=== PATIENT | female | born 1990 | race Caucasian/White ===

== ENCOUNTER 2017-05-13 17:06 | Emergency (ER) | payer MEDICAID ==
[~2017-05-13] VITALS: Ht 162.6 cm; Wt 57.0 kg
[2017-05-13 17:14] VITALS: BP 127/80
== END 2017-05-14 01:12 | disposition left against medical advice (07) ==
LOC: ER 23:59
DX: M54.5 Low back pain (principal); Z53.21 Procedure and treatment not carried out due to patient leaving prior to being seen by health care provider

== ENCOUNTER 2020-11-18 22:32 | Observation (INO) | payer MEDICAID ==
[~2020-11-18] VITALS: Ht 157.5 cm; Wt 71.7 kg
[2020-11-18] MEDS ORDERED: LACTATED RINGERS 1,000 ML IV SCH ×2 (23:15→23:45)
[2020-11-18 23:25] LABS: CLARITY URINE CLEAR (CLEAR); COLOR URINE YELLOW (YELLOW); KETONES URINE NEGATIVE (NEGATIVE); LEUKOCYTE ESTERASE URINE 1+ (NEGATIVE); NITRITE URINE NEGATIVE (NEGATIVE); OCCULT BLOOD URINE NEGATIVE (NEGATIVE); PH URINE 5.5 (4.5-8.0); PROTEIN URINE NEGATIVE (NEGATIVE); SPECIFIC GRAVITY URINE 1.014 (1.005-1.030); UROBILINOGEN URINE 0.2 E.U./dL (0.2-1.0)
[2020-11-18] MEDS ORDERED: PREN1TAB78 MT (23:30)
[2020-11-18] MEDS ORDERED: FERR236T3 MT (23:31)
[2020-11-18] MEDS ORDERED: FERR-71 MT (23:31)
[2020-11-19] MEDS ORDERED: TERBUTALINE SULFATE 1MG/ML VIAL SUBCUT NR (00:45)
[2020-11-19] MEDS ORDERED: CEFAZOLIN 2,000 MG in DEXT 5% WATER 100 ML IV SCH (01:30)
== END 2020-11-19 02:00 | disposition home or self-care (01) ==
LOC: 8 EST LDRP 22:32
PROVIDERS: ADMIT Obstetrics & Gynecology; ATTEND Obstetrics & Gynecology
DX: O26.893 Other specified pregnancy related conditions, third trimester (principal); R10.9 Unspecified abdominal pain; Z3A.36 36 weeks gestation of pregnancy
CPT/HCPCS: 59025; 81003; 96361; 96365; 96372; G0378; J3105; J7120; 96360; 99281; J0690; J7060

== ENCOUNTER 2020-12-08 21:59 | Inpatient (IN) | payer MEDICAID ==
[~2020-12-08] VITALS: Ht 157.5 cm; Wt 72.1 kg
[~2020-12-08 21:59] MED LIST: FERR-71 MT; PREN1TAB78 MT
[2020-12-08] MEDS ORDERED: FERR325T6 PO (22:26)
[2020-12-08] MEDS ORDERED: PREN-182 PO (22:26)
[2020-12-08] MEDS ORDERED: LIDOCAINE HCL 1% 20ML VIAL (Pyxis) INJ INFIL SCH (23:15)
[2020-12-08] MEDS ORDERED: MISOPROSTOL 100MCG TABLET VG SCH (23:15)
[2020-12-08] MEDS ORDERED: NALOXONE HCL 0.4 MG/ML 1ML VIAL IM PRN (23:15)
[2020-12-08] MEDS ORDERED: DEXT 5%/LR + PITOCIN 20UNITS/L 1,000 ML IV SCH (23:15)
[2020-12-08] MEDS ORDERED: CARBOPROST TROMETHAMINE 250 MCG/ML AMPUL IM PRN (23:15)
[2020-12-08] MEDS ORDERED: BUTORPHANOL TARTRATE 2 MG/ML VIAL IV PRN (23:15)
[2020-12-08] MEDS ORDERED: METHYLERGONOVINE MALEATE 0.2 MG/ML IM PRN (23:15)
[2020-12-08 23:57] LABS: CLARITY URINE CLEAR (CLEAR); COLOR URINE YELLOW (YELLOW); KETONES URINE NEGATIVE (NEGATIVE); LEUKOCYTE ESTERASE URINE NEGATIVE (NEGATIVE); NITRITE URINE NEGATIVE (NEGATIVE); OCCULT BLOOD URINE NEGATIVE (NEGATIVE); PH URINE 6.5 (4.5-8.0); PROTEIN URINE NEGATIVE (NEGATIVE); SPECIFIC GRAVITY URINE 1.016 (1.005-1.030)
[2020-12-09] LABS: BASOPHILS % 0.5 % (0.0-2.0); EOSINOPHILS % 0.4 % (0.0-5.0); HEMATOCRIT. 30.8 % (36.0-48.0); HEMOGLOBIN. 10.3 g/dL (12.0-16.0); LYMPHOCYTES % 17.9 % (20.0-50.0); MEAN CORPUSCULAR HEMOGLOBIN 25.6 pg (28.0-32.0); MEAN CORPUSCULAR VOLUME 76.6 fL (81.0-99.0); MEAN PLATELET VOLUME 8.5 fl (7.4-10.4); NEUTROPHILS % 76.2 % (40.0-76.0); PLATELET 273 x1000/uL (130-400); RED BLOOD CELL COUNT 4.02 mill/uL (4.2-5.4); RED CELL DISTRIBUTION WIDTH 14.7 % (11.6-14.6)
[2020-12-09] MEDS ORDERED: PENICILLIN G POTASSIUM 5 MMU in DEXT 5% WATER 100 ML IV SCH
[2020-12-09] MEDS: LACTATED RINGERS 1,000 ML IV SCH ×2 (00:02→01:26)
[2020-12-09 00:06] LABS: INR 0.9; PARTIAL THROMBOPLASTIN TIME 25.9 sec (23.4-31.0); PROTHROMBIN TIME 9.8 sec (9.6-11.0)
[2020-12-09 00:07] LABS: *BARBITURATES SCREEN URINE NEGATIVE (NEGATIVE); *COCAINE SCREEN URINE NEGATIVE (NEGATIVE)
[2020-12-09 00:09] LABS: *AMPHETAMINES SCREEN URINE NEGATIVE (NEGATIVE); *BENZODIAZEPINES SCREEN URINE NEGATIVE (NEGATIVE); CANNABINOID URINE SCREEN NEGATIVE (NEGATIVE); METHADONE URINE SCREEN NEGATIVE (NEGATIVE); OPIATES URINE SCREEN NEGATIVE (NEGATIVE); PHENCYCLIDINE URINE SCREEN NEGATIVE (NEGATIVE)
[2020-12-09 00:35] LABS: HEPATITIS B SURFACE ANTIGEN NEGATIVE
[2020-12-09] MEDS ORDERED: LIDOCAINE HCL 2%/EPINEPHRINE 1:100,000 20 ML VIAL INFIL ONE (01:00)
[2020-12-09] MEDS ORDERED: ROPIVACAINE HCL/PF EPIDURAL 200 ML EPI SCH (01:00)
[2020-12-09] MEDS ORDERED: PENICILLIN G POTASSIUM 2.5 MMU in DEXTROSE 5% WATER 50 ML IV SCH (04:00)
[2020-12-09] MEDS ORDERED: FENTANYL CITRATE/PF 50MCG/ML 2ML VIAL ONE (05:19)
[2020-12-09] MEDS ORDERED: LANOLIN OINT 7GM TUBE TOP PRN (08:45)
[2020-12-09] MEDS ORDERED: BISACODYL 10MG SUPP PR PRN (08:45)
[2020-12-09] MEDS ORDERED: IBUPROFEN 400MG TABLET PO PRN (08:45)
[2020-12-09] MEDS ORDERED: GLYCERIN/WITCH HAZEL LEAF MEDICATED PAD TOP PRN (08:45)
[2020-12-09] MEDS ORDERED: BENZOCAINE/LANOLIN/ALOE VERA SPRAY TOP PRN (08:45)
[2020-12-09] MEDS ORDERED: ACETAMINOPHEN WITH CODEINE 300/30MG TABLET PO PRN (08:45)
[2020-12-09] MEDS ORDERED: DEXT 5%/LR + PITOCIN 20UNITS/L 1,000 ML IV SCH (08:45)
[2020-12-09] MEDS ORDERED: HEMORRHOIDAL SUPP PR PRN (08:45)
[2020-12-09] MEDS: IBUPROFEN 800MG TABLET PO PRN (09:19)
[2020-12-09 10:30] VITALS: BP 112/72
[2020-12-09 17:00] VITALS: BP 110/62
[2020-12-09] MEDS: MAGNESIUM/ALUMINUM HYDROXIDE/SIMETHICONE 30ML UDC PO SCH (17:54)
[2020-12-09] MEDS: SIMETHICONE 80MG TABLET CHEW PO SCH (17:54)
[2020-12-09] MEDS: DOCUSATE SODIUM 100MG CAPSULE PO SCH (20:58)
[2020-12-09 22:00] VITALS: BP 102/58
[2020-12-10 06:51] LABS: BASOPHILS % 0.4 % (0.0-2.0); EOSINOPHILS % 0.6 % (0.0-5.0); HEMATOCRIT. 26.4 % (36.0-48.0); HEMOGLOBIN. 8.6 g/dL (12.0-16.0); LYMPHOCYTES % 20.7 % (20.0-50.0); MEAN CORPUSCULAR HEMOGLOBIN 25.1 pg (28.0-32.0); MEAN CORPUSCULAR VOLUME 77.3 fL (81.0-99.0); MEAN PLATELET VOLUME 8.3 fl (7.4-10.4); MONOCYTES % 4.9 % (2.0-8.0); NEUTROPHILS % 73.4 % (40.0-76.0); PLATELET 206 x1000/uL (130-400); RED BLOOD CELL COUNT 3.42 mill/uL (4.2-5.4); RED CELL DISTRIBUTION WIDTH 14.5 % (11.6-14.6)
[2020-12-10 08:00] VITALS: BP 115/69
[2020-12-10] MEDS: MAGNESIUM/ALUMINUM HYDROXIDE/SIMETHICONE 30ML UDC PO SCH ×3 (08:47→20:45)
[2020-12-10] MEDS: FERROUS SULFATE 325MG TABLET PO SCH ×3 (08:47→20:43)
[2020-12-10] MEDS: PRENATAL VIT/FE FUMARATE/FA TABLET PO SCH (08:48)
[2020-12-10] MEDS: SIMETHICONE 80MG TABLET CHEW PO SCH ×3 (08:48→20:43)
[2020-12-10] MEDS ORDERED: INFLUENZA VACCINE 05/PF 0.5 ML VIAL IM ONE (09:00)
[2020-12-10 16:00] VITALS: BP 115/67
[2020-12-10 19:55] VITALS: BP 119/71
[2020-12-10] MEDS: DOCUSATE SODIUM 100MG CAPSULE PO SCH (20:43)
[2020-12-10] MEDS: IBUPROFEN 800MG TABLET PO PRN (20:43)
[2020-12-11 04:00] VITALS: BP 122/77
[2020-12-11 07:40] VITALS: BP 124/75
[2020-12-11] MEDS: PRENATAL VIT/FE FUMARATE/FA TABLET PO SCH (09:35)
[2020-12-11] MEDS: FERROUS SULFATE 325MG TABLET PO SCH (09:35)
[2020-12-11] MEDS: SIMETHICONE 80MG TABLET CHEW PO SCH (09:36)
== END 2020-12-11 11:25 | disposition home or self-care (01) | DRG 560 ==
LOC: 8 EST LDRP 21:59 → OBSVTOIN 21:59 → INTOOBSV 21:59 → 8EST 12-09 10:29
PROVIDERS: ADMIT Obstetrics & Gynecology; ATTEND Obstetrics & Gynecology
PROC: 10E0XZZ Delivery of Products of Conception, External Approach (ICD-10-PCS; principal; 2020-12-09)
PROC: 00HU33Z Insertion of Infusion Device into Spinal Canal, Percutaneous Approach (ICD-10-PCS; 2020-12-09)
PROC: 3E0R3BZ Introduction of Anesthetic Agent into Spinal Canal, Percutaneous Approach (ICD-10-PCS; 2020-12-09)
DX: O99.02 Anemia complicating childbirth (principal); D64.9 Anemia, unspecified; Z3A.38 38 weeks gestation of pregnancy; Z37.0 Single live birth; Z20.822 Contact with and (suspected) exposure to COVID-19
CPT/HCPCS: 36415; 80305; 81003; 85025; 86592; 86703; 86762; 86850; 86900; 87340; 87426; 90686; 99281; G0378; J0595; J2540; J2590; J2795; J3010; J3490; J7060; A4315

== ENCOUNTER 2022-05-13 14:37 | Emergency (ER) | payer MEDICAID ==
[~2022-05-13] VITALS: Ht 152.4 cm; Wt 66.0 kg
[2022-05-13 16:56] LABS: CLARITY URINE CLEAR (CLEAR); COLOR URINE YELLOW (YELLOW); KETONES URINE NEGATIVE (NEGATIVE); LEUKOCYTE ESTERASE URINE NEGATIVE (NEGATIVE); NITRITE URINE NEGATIVE (NEGATIVE); OCCULT BLOOD URINE NEGATIVE (NEGATIVE); PROTEIN URINE NEGATIVE (NEGATIVE); SPECIFIC GRAVITY URINE 1.023 (1.005-1.030)
[2022-05-13] MEDS ORDERED: KETOROLAC 60MG/2ML VIAL IM ONE (17:00)
[2022-05-13 17:27] VITALS: BP 130/85
[2022-05-13] MEDS ORDERED: IBUP-2029 MT (17:58)
[2022-05-13] MEDS ORDERED: CYCL10TA21 MT (17:58)
== END 2022-05-13 18:14 | disposition home or self-care (01) ==
LOC: ER 14:37
DX: M54.50 Low back pain, unspecified (principal)
CPT/HCPCS: 81003; 81025; 96372; 99283; J1885